=== PATIENT | female | born 1995 | race Caucasian/White ===

== ENCOUNTER 2018-04-06 11:18 | Outpatient (CLI) | payer BC ==
[~2018-04-06] VITALS: Ht 177.8 cm; Wt 80.3 kg
[2018-04-06] MEDS ORDERED: DROS1TAB3 PO (12:26)
[2018-04-06] MEDS ORDERED: FERR-84 PO (12:26)
== END 2018-04-06 12:31 | disposition home or self-care (01) ==
LOC: PREOP 11:18
PROVIDERS: ATTEND Surgery
DX: Z01.818 Encounter for other preprocedural examination (principal)

== ENCOUNTER 2018-04-09 12:32 | Day surgery (SDC) | payer BC ==
[~2018-04-09] VITALS: Ht 177.8 cm; Wt 80.3 kg
[~2018-04-09 12:32] MED LIST: DROS1TAB3 PO; FERR-84 PO
[2018-04-09] MEDS ORDERED: LACTATED RINGERS 1,000 ML IV STA (13:04)
--- NOTE | 2018-04-09 13:04 | Progress Note-Pre Operative ---
Pre-Operative Progress Note H&P Reviewed The H&P was reviewed, patient examined and no changes noted. Time Seen by Provider: 13:02 Date H&P Reviewed: Apr 09, 2018 Time H&P Reviewed: 13:03 Pre-Operative Diagnosis: Rectal Bleed, Chronic Gastritis DREW DEL RIO DO Apr 09, 2018 13:04
[2018-04-09] MEDS ORDERED: HURRICAINE EXT TUBE (BENZOCAINE) XX PRN (13:15)
[2018-04-09] MEDS ORDERED: ONDANSETRON 4 MG/2 ML (SDV) Z0FRAN IV ONE (13:30)
[2018-04-09] MEDS ORDERED: FAMOTIDINE 20MG/2ML IV (PEPCID) IV ONE (13:30)
[2018-04-09] MEDS ORDERED: SCOPOLAMINE 1.5 MG (TRANSDERM-SCOP) PATCH TOP ONE (13:30)
[2018-04-09 13:50] VITALS: BP 94/72
[2018-04-09] MEDS ORDERED: ONDANSETRON 4 MG/2 ML (SDV) Z0FRAN ONE (14:02)
[2018-04-09] MEDS ORDERED: HURRICAINE EXT TUBE (BENZOCAINE) ONE (14:44)
[2018-04-09] MEDS ORDERED: proPOfol 200 MG/20 ML (DIPRIVAN) VIAL IV ONE ×3 (15:01→15:31)
[2018-04-09] MEDS ORDERED: MIDAZOLAM 2 MG/2 ML (VERSED) VIAL ONE (15:01)
--- NOTE | 2018-04-09 16:05 | Anesthesia-General Post-Op ---
MAC Patient Condition Mental Status/LOC: Same as Preop Cardiovascular: Satisfactory Nausea/Vomiting: Absent Respiratory: Satisfactory Pain: Controlled Complications: Absent Post Op Complications Complications None Follow Up Care/Instructions Patient Instructions None needed. Anesthesiology Discharge Order Discharge Order Patient is doing well, no complaints, stable vital signs, no apparent adverse anesthesia problems. No complications reported per nursing. KAVIN SUÁREZ CRNA Apr 09, 2018 16:05
--- NOTE | 2018-04-09 16:08 | Progress Note-Post Operative ---
Post-Operative Progess Note Surgeon (s)/Block Tester (s) Surgeon DREW DEL RIO DO Block Tester: none Pre-Operative Diagnosis Rectal Bleed, Chronic Gastritis Post-Operative Diagnosis Same plus Hiatal hernia Internal hemorrhoids ??Healing anal fissure Procedure & Operative Findings Date of Procedure 04/09/18 Procedure Performed/Findings EGD with bx Colon with bx of TI Anesthesia Type IV sedation by OCCUPATIONAL THERAPY SPECIALIST Estimated Blood Loss Estimated blood loss (mL): scant Specimens/Packing Specimens Removed Antral bx TI bx DREW DEL RIO DO Apr 09, 2018 16:08
[2018-04-09 16:10] VITALS: BP 97/61
--- NOTE | 2018-04-09 16:11 | Endoscopy Discharge Instruct ---
Endo Procedure/Findings Findings 1.: Gastritis 2.: Hiatal Hernia 3.: Internal Hemorrhoids 4.: Other Findings (?? healing anal fissure) Discharge Instructions - Activity: You might feel a little sleepy until tomorrow. This is due to the medicine you received to relax you. Until tomorrow, you should: NOT drive a car, operate machinery or power tools. NOT drink any alcoholic beverages. NOT make any important decisions or sign importortant papers. Do not return to work until tomorrow, unless otherwise instructed. Resume previous activities tomorrow. Diet: Start by taking liquids. If you tolerate liquids, advance to solid food. make appointment for one week Notify Physician - If you experience excessive bleeding, unusual abdominal pain, fever, or chest pain, contact your doctor immediately. Follow-Up: - I have received and understand the above instructions and will call my doctor if I have any further questions. Patient Signature Date Nurse Signature Other (Relationship) DREW DEL RIO DO Apr 09, 2018 16:11
[2018-04-09 16:35] VITALS: BP 95/63
[2018-04-09 16:45] VITALS: BP 95/63
--- NOTE | 2018-04-09 21:09 | OPERATIVE REPORT ---
DATE OF SERVICE: 04/09/2018 PREOPERATIVE DIAGNOSES: 1. Gastritis. 2. Rectal bleed. POSTOPERATIVE DIAGNOSES: 1. Gastritis. 2. Hiatal hernia. 3. Internal hemorrhoids. 4. Healing anal fissure. PROCEDURES: 1. EGD with biopsy. 2. Colonoscopy with biopsy of the terminal ileum. SURGEON: Matt Rizzo DO INSPECTOR BICYCLE: None. ANESTHESIA: IV sedation by the NUCLEAR PLANT TECHNICAL ADVISOR. SPECIMENS: 1. Biopsy from the antrum. 2. Biopsy from the terminal ileum. BLOOD LOSS: Scant. FLUIDS: Per anesthesia. POSTOPERATIVE CONDITION: Stable. INDICATIONS FOR PROCEDURE: The patient is a 22-year-old female who has been having abdominal pain, rectal bleeding and has a history of IBS and mother had Crohn's. FINDINGS: The patient had some gastritis, little bit of erythema in the stomach. She also hiatal hernia, but the GE junction looked good. There were no signs of ulceration. No erythema. I took a biopsy and saw some small internal hemorrhoids and possibly a healing anal fissure, but no other obvious pathology. PROCEDURE NOTE: After informed consent was obtained, the patient was brought to the endoscopy suite and placed in the bed in left lateral decubitus position. She was administered IV sedation by the NUCLEAR PLANT TECHNICAL ADVISOR, who then monitored her vitals the entire time, heart rate, blood pressure and pulse ox. The scope was inserted down the mouth into the esophagus and down into the stomach. Upon entering the stomach, looked at the antrum, looked like there was a little bit of erythema, pushed into the first portion of the duodenum. No ulcerations or erythema seen, pulled back into the antrum, took a biopsy of the antrum and then retroflexed to look at the fundus and to look at the GE junction from below, appeared to be a small hiatal hernia. I then pulled back into the esophagus. The Z-line looked fine. There was no creeping up. Rest of the esophagus looked good and the scope was pulled out the mouth. Switched gloves, switched scopes, went to the other side and started the colonoscopy. Pushed the scope in, pushed all the way about 150 cm, able to get all the way to the cecum, took a picture of the appendiceal orifice, then able to push into the terminal ileum, took a biopsy of the terminal ileum and then slowly withdrew the scope insufflating to look circumferentially at the taylor looking at the cecum up the ascending colon to the hepatic flexure then down the transverse colon, the splenic flexure, into the descending colon then down the sigmoid and finally into the rectum, retroflexed in the rectal vault, saw some internal hemorrhoids, took a picture of this, took also pictures of the ascending colon, transverse colon, descending colon. Again, did not see any erythema or ulcerations. After retroflexing the scope, then removed it and looked at the anus, looked like it was a healing anal fissure. She also had a little bit of tight anal sphincter. The patient tolerated the procedure. She was recovered in the endoscopy suite. Job ID: [id number] DocumentID: [id number] Dictated Date: 04/09/2018 16:15:23 Steam Pipe Fitter Date: 04/09/2018 21:08:17 Dictated By: DO DEANNE ONEIL
== END 2018-04-09 16:45 | disposition home or self-care (01) ==
LOC: ENDO 12:32
PROVIDERS: ATTEND Surgery
DX: K60.2 Anal fissure, unspecified (principal); K64.8 Other hemorrhoids; K44.9 Diaphragmatic hernia without obstruction or gangrene; K29.70 Gastritis, unspecified, without bleeding; K58.9 Irritable bowel syndrome, unspecified; K21.9 Gastro-esophageal reflux disease without esophagitis; Z83.79 Family history of other diseases of the digestive system
CPT/HCPCS: 84703

== ENCOUNTER 2018-04-19 14:29 | Outpatient (RCR) | payer BC ==
[2018-04-19 15:00] LABS: BASOPHILS % (AUTO) 0 % (0-10); EOSINOPHILS # (AUTO) 0.2 10^3/uL (0.0-0.3); EOSINOPHILS % (AUTO) 5 % (0-10); HEMATOCRIT 37 % (35-52); HEMOGLOBIN 13.1 G/DL (11.5-16.0); LYMPHOCYTES # (AUTO) 1.4 X 10^3 (1.0-4.0); LYMPHOCYTES % (AUTO) 35 % (12-44); MEAN CORPUSCULAR HEMOGLOBIN 30 PG (25-34); MEAN CORPUSCULAR HGB CONC 35 G/DL (32-36); MEAN CORPUSCULAR VOLUME 86 FL (80-99); MEAN PLATELET VOLUME 10.1 FL (7.4-10.4); MONOCYTES # (AUTO) 0.3 X 10^3 (0.0-1.0); MONOCYTES % (AUTO) 9 % (0-12); NEUTROPHILS # (AUTO) 2.1 X 10^3 (1.8-7.8); NEUTROPHILS % (AUTO) 52 % (42-75); PLATELET COUNT 280 10^3/uL (130-400); RED BLOOD COUNT 4.31 10^6/uL (4.35-5.85); RED CELL DISTRIBUTION WIDTH 12.5 % (10.0-14.5)
[2018-04-19 15:18] LABS: ALANINE AMINOTRANSFERASE 11 U/L (0-55); ALKALINE PHOSPHATASE 29 U/L (40-136); BILIRUBIN,TOTAL 0.3 MG/DL (0.1-1.0); BUN/CREATININE RATIO 9; CALCIUM 9.3 MG/DL (8.5-10.1); CARBON DIOXIDE 23 MMOL/L (21-32); CHLORIDE 105 MMOL/L (98-107); CREATININE SERUM 0.77 MG/DL (0.60-1.30); GFR ESTIMATED > 60; GLUCOSE 92 MG/DL (70-105); SODIUM 135 MMOL/L (135-145); TOTAL PROTEIN 7.3 GM/DL (6.4-8.2)
[2018-04-19 15:48] LABS: BAND NEUTROPHILS 0 %; BASOPHILS % (MANUAL) 0 %; EOSINOPHILS % (MANUAL) 5 %; LYMPHOCYTES % (MANUAL) 34 %; MONOCYTES % (MANUAL) 6 %; NEUTROPHILS % (MANUAL) 55 %; RBC MORPH NORMAL
--- NOTE | 2018-04-26 15:00 | Physician Query-Final Dx ---
JOHN DUENAS 04/26/18 1500: Clinic Account Progress/Dx Physician Query: Please specify the location of the abd pain thank you Date of Service Apr 19, 2018 at 14:29 DREW DEL RIO DO 05/01/18 1437: Clinic Account Progress/Dx Physician Query: Please give diagnosis (entire abdomen) DIAGNOSIS: Diagnosis: (1) Chronic gastritis without bleeding Qualifiers: Qualified Codes: K29.30 - Chronic superficial gastritis without bleeding (2) Hemorrhage of anus and rectum Diagnosis diffuse abdominal pain JOHN DUENAS Apr 26, 2018 15:00 DREW DEL RIO DO May 01, 2018 14:37
== END 2018-07-18 | disposition home or self-care (01) ==
LOC: LAB 14:29
PROVIDERS: ATTEND Surgery
DX: K58.9 Irritable bowel syndrome, unspecified (principal); R10.32 Left lower quadrant pain
CPT/HCPCS: 36415; 80053; 85007; 85027; 86021; 86671; 87045; 87046; 87177

== ENCOUNTER → 2018-07-06 | Outpatient (CLI) | payer BC ==
[~2018-07-06] VITALS: Ht 157.5 cm; Wt 79.4 kg
[~2018-07-06] MED LIST changes: +GADOBUTROL 7.5 MMOL/7.5 ML (GADAVIST) VIAL IV ONE; +IOHEXOL 240 MGI/ML 20 ML (OMNIPAQUE) VIAL IV ONE; +LIDOCAINE 1% INJ 20 ML 20 ML VIAL INJ ONE
--- NOTE | 2018-07-06 11:14 | Diagnostic Imaging Report ---
EXAMINATION: Magnetic resonance imaging of the right shoulder without contrast. DATE: July 06, 2018. COMPARISON: Right shoulder arthrogram of July 06, 2018. HISTORY: 22-year-old female, shoulder injury lifting 2 months ago. History of prior shoulder surgery. TECHNIQUE: Magnetic Resonance Imaging sequences were performed of the shoulder following the intra-articular administration of contrast. FINDINGS: ROTATOR CUFF, LIGAMENTS, TENDONS, AND MUSCLES: The supraspinatus, infraspinatus, teres minor, and subscapularis tendons and muscles are intact. There is normal rotator cuff muscle bulk and signal. LONG HEAD OF BICEPS: The biceps labral attachment and long head of the biceps tendon are intact. The long head of the biceps tendon is normally positioned within the bicipital groove. GLENOHUMERAL JOINT: The humeral head is well positioned relative to the glenoid. There are two anchor tracts within the glenoid at the location of the superior glenoid and posterior/superior glenoid, likely relating to prior labral repair. There is no evidence of a fluid-filled recurrent or residual labral tear or new labral tear. There is no paralabral cyst. The articular cartilage is grossly intact. There is no intra-articular body or prominent synovitis. The axillary pouch appears somewhat lax. There is no definite discrete tear of the anterior band of the inferior glenohumeral ligament complex. The posterior band is less well-defined. ACROMIOCLAVICULAR JOINT: The acromioclavicular joint is normally aligned. The coracoclavicular and coracoacromial ligaments are intact. There are no degenerative changes of the acromioclavicular joint. BONE: The bones all have normal configuration. The bone marrow signal is within normal limits. Specifically, negative for fracture, osteomyelitis, osteonecrosis, or marrow replacing process. BURSAE AND SOFT TISSUES: The bursae and soft tissue surrounding the shoulder are unremarkable. IMPRESSION: 1. Status post labral tear without evidence of residual or recurrent labral tear or new labral tear. No paralabral cyst. Grossly intact articular cartilage. 2. The axillary pouch appears somewhat lax with indistinct posterior band of the inferior glenohumeral ligament. The anterior band does appear intact. 3. Intact rotator cuff. 4. Intact acromioclavicular joint. 5. No acute fracture or bone contusion. Dictated by: Dictated on workstation # [id number]
--- NOTE | 2018-07-06 13:44 | Diagnostic Imaging Report ---
INDICATION: Right shoulder pain. Patient has had prior right labral repair. TECHNIQUE: The patient was brought to the procedure room and placed on the table in the supine position. The right shoulder was prepped and draped in the usual sterile fashion. A small amount of 1% lidocaine was utilized for local anesthesia. A 21-gauge needle was advanced into the right shoulder at the rotator interval. A 15 mL solution of iodinated contrast, normal saline, and gadolinium was injected under fluoroscopic observation. The needle was withdrawn and hemostasis was obtained. The patient tolerated the procedure well and was sent to MRI in satisfactory condition. A total of 10 seconds of fluoroscopy was utilized. IMPRESSION: Right shoulder injection of gadolinium contrast solution using fluoroscopy. Dictated by: Dictated on workstation # [id number]
== END ==
LOC: RAD 08:33
PROVIDERS: ATTEND Orthopaedic Surgery
DX: S43.431A Superior glenoid labrum lesion of right shoulder, initial encounter (principal)
CPT/HCPCS: 23350; 73040; 73222

== ENCOUNTER 2018-08-02 05:17 | Emergency (ER) | payer BC | END 2018-08-02 07:33 | disposition home or self-care (01) | LOC: ER 05:17 ==